=== PATIENT | female | born 1970 | race Caucasian/White ===

== ENCOUNTER 2017-12-03 09:23 | Emergency (ER) | payer BC ==
[2017-12-03 10:37] VITALS: BP 125/66
--- NOTE | 2017-12-03 10:58 | RAD ---
Indication: Lateral LEFT ankle pain post fall. Previous tarsal tunnel surgery. Comparison: No relevant prior exams available on the [facility] PACS for comparison. Technique: AP, mortise, and lateral views LEFT ankle. Report: Severe soft tissue swelling over the lateral malleolus. Fracture of the lateral malleolus terminating inferiorly at the level of the ankle mortise with up to 2 mm lateral displacement and slight widening of the ankle mortise medially. Negative for additional fracture. Talocrural joint effusion. IMPRESSION: Lino type B lateral malleolus fracture pattern with associated mild widening of the ankle mortise.
--- NOTE | 2017-12-03 11:16 | UC ---
Lower Extremity/Ankle HPI - HPI Summary HPI Summary: Pt c/o sudden onset of left ankle pain s/p slipping on ice this morning. Pt is unable to bear weight on left foot/ankle. - History of Current Complaint Chief Complaint: UCLowerExtremity Stated Complaint: LEFT ANKLE INJ Time Seen by Provider: 12/03/17 10:42 Hx Obtained From: Patient ?: No Onset/Duration: Sudden Onset, Still Present Severity Initially: Moderate Severity Currently: Mild Pain Intensity: 8 Aggravating Factor(s): Standing, Ambulation Alleviating Factor(s): Rest, Elevation, Ice Able to Bear Weight: No - Risk Factors Gout Risk Factors: Age Over 40, Obesity DVT Risk Factors: Negative Septic Arthritis Risk Factor: Negative - Allergies/Home Medications Allergies/Adverse Reactions: Allergies Allergy/AdvReac Type Severity Reaction Status Date / Time No Known Allergies Allergy Verified 12/03/17 10:37 Home Medications: Home Medications Ibuprofen 600 mg PO 12/03/17 [History] PMH/Surg Hx/FS Hx/Imm Hx Previously Healthy: Yes - Surgical History Surgical History: Yes Surgery Procedure, Year, and Place: carple tunnel X2. Tarsal tunnel on left foot - Family History Known Family History: Positive: Cardiac Disease - Social History Occupation: Unemployed Lives: With Family Alcohol Use: Occasionally Substance Use Type: None Smoking Status (MU): Never Smoked Tobacco Have You Smoked in the Last Year: No Review of Systems Constitutional: Negative Skin: Bruising - left ankle lateral malleolous Eyes: Negative ENT: Negative Respiratory: Negative Cardiovascular: Negative Gastrointestinal: Negative Genitourinary: Negative Motor: Decreased ROM - left ankle Neurovascular: Negative Musculoskeletal: Arthralgia, Decreased ROM, Edema - left ankle lateral malleolous, Myalgia Neurological: Negative Psychological: Negative Is Patient Immunocompromised?: No All Other Systems Reviewed And Are Negative: Yes Physical Exam Triage Information Reviewed: Yes Appearance: Well-Appearing Vital Signs: Initial Vital Signs Temp 99.2 F 12/03/17 10:34 Pulse 93 12/03/17 10:34 Resp 18 12/03/17 10:34 BP 125/66 12/03/17 10:34 Pulse Ox 99 12/03/17 10:34 Vital Signs Reviewed: Yes Eye Exam: Normal ENT Exam: Normal Dental Exam: Normal Neck exam: Normal Respiratory: Positive: No respiratory distress Musculoskeletal Exam: Other Musculoskeletal: Positive: Strength Limited @ - left ankle, ROM Limited @, Edema @ - left lateral malleolous Neurological Exam: Normal Psychological Exam: Normal Skin Exam: Normal Diagnostics - Laboratory Diagnostic Studies Completed/Ordered: IMPRESSION: Lino type B lateral malleolus fracture pattern with associated mild widening. of the ankle mortise. - Radiology No standard instances Radiology Interpretation Completed By: Radiologist - IMPRESSION: Lino type B lateral malleolus fracture pattern with associated mild widening of the ankle mortise. Lower Extremity Course/Dx - Course Course Of Treatment: I discussed with the pt the need to follow up with orhtopedic provider as soon as possible. - Differential Dx/Diagnosis Differential Diagnosis/HQI/PQRI: Fracture (Closed) Provider Diagnoses: left ankle fracture. IMPRESSION: Lino type B lateral malleolus fracture pattern with associated mild widening. of the ankle mortise. Discharge - Discharge Plan Condition: Stable Disposition: HOME Prescriptions: Ibuprofen TAB* [Motrin TAB* 800 MG] 800 mg PO Q8H #15 tab Patient Education Materials: Ankle Fracture (ED), R.I.C.E. Treatment (ED) Referrals: Non Staff,Doctor [Primary Care Provider] - [facility] [facility]FERR[facility] [Outside] Additional Instructions: Please follow up with your preferred Othropedic provider as soon as possible: [facility] Address: [address] [place] [address]
== END 2017-12-03 11:35 | disposition home or self-care (01) ==
LOC: UCCORT 09:23
DX: S82.62XA Displaced fracture of lateral malleolus of left fibula, initial encounter for closed fracture (principal); W00.0XXA Fall on same level due to ice and snow, initial encounter; Y93.9 Activity, unspecified; Y92.9 Unspecified place or not applicable
CPT/HCPCS: 99201; G0463

== ENCOUNTER 2018-09-17 05:42 | Day surgery (SDC) | payer BC ==
[2018-09-17] MEDS ORDERED: Buffered Lidocaine 0.9% SYRIN* 5 ML/SYR SYRINGE INTRADERM ONE (06:00)
[2018-09-17] MEDS ORDERED: Famotidine IV* 10 MG/ML 2 ML (20 mg) IV ONE (06:00)
[2018-09-17] MEDS ORDERED: Morphine PCA ADULT* 5 MG/ML 30 ML ONE ×2 (06:06→07:04)
[2018-09-17] MEDS ORDERED: Famotidine IV* 10 MG/ML 2 ML (20 mg) ONE (06:10)
[2018-09-17] MEDS ORDERED: Morphine VIAL* 10 MG/ML 1 ML VIAL ONE (06:10)
[2018-09-17] MEDS ORDERED: Clindamycin 900 MG/D5W BAG(*) 900 MG/50 ML BAG IVPB ONE (06:11)
[2018-09-17] MEDS ORDERED: Lidocaine 2% PF * 5 ML VIAL ONE (07:07)
[2018-09-17] MEDS ORDERED: Ketorolac INJ* 30 MG/ML 1 ML VIAL ONE (07:07)
[2018-09-17] MEDS ORDERED: Ondansetron INJ* 2 MG/ML VIAL ONE (07:07)
[2018-09-17] MEDS ORDERED: Propofol* 10 MG/ML 20 ML BTL IV PUSH ONE (07:07)
[2018-09-17] MEDS ORDERED: Dexamethasone IV* 4 MG/ML 1 ML (4 MG) ONE (07:07)
[2018-09-17] MEDS ORDERED: Midazolam* 1 MG/ML 5 ML VIAL (5 MG) ONE (07:08)
[2018-09-17] MEDS ORDERED: KETAMINE HCL* 50 MG/ML 10 ML VIAL ONE (07:08)
[2018-09-17] MEDS ORDERED: fentaNYL* 50 MCG/ML 2 ML VIAL (100 MCG VIAL) ONE ×3 (07:08→09:54)
[2018-09-17] MEDS ORDERED: Bupivacaine 0.5% SDV PF* 30ML VIAL ONE (07:14)
[2018-09-17] MEDS ORDERED: Cisatracurium* 2 MG/ML MDV 5 ML ONE (07:34)
[2018-09-17] MEDS ORDERED: HYDROmorphone INJ1* 1 MG/ML SYRINGE IV PRN (08:17)
[2018-09-17] MEDS ORDERED: Naloxone* 0.4 MG/ML 1 ML VIAL IV PRN (08:17)
[2018-09-17] MEDS ORDERED: Ondansetron INJ* 2 MG/ML VIAL IV PRN (08:17)
[2018-09-17] MEDS ORDERED: Glycopyrrolate IV* 0.2 MG/ML 1 ML VIAL ONE (08:28)
[2018-09-17] MEDS ORDERED: Neostigmine Methylsulfate* 1 MG/ML 10 ML VIAL (1 mg/ml) ONE (08:28)
[2018-09-17] MEDS ORDERED: HYDROmorphone INJ1* 1 MG/ML SYRINGE ONE (08:34)
[2018-09-17] MEDS ORDERED: oxyCODONE/Acetamin 5/325 MG* TAB ONE ×2 (08:53→09:54)
[2018-09-17] MEDS: fentaNYL* 50 MCG/ML 2 ML VIAL (100 MCG VIAL) IV PRN ×2 (08:55→09:17)
[2018-09-17] MEDS: oxyCODONE/Acetamin 5/325 MG* TAB PO PRN ×2 (08:55→09:55)
[2018-09-17 10:43] VITALS: BP 111/56
--- NOTE | 2018-09-18 15:06 | OP ---
DATE OF OPERATION: 09/17/18 - [facility] DATE OF : 66 SURGEON: Capo Burrows MD TOOL HONING MACHINE SET UP OPERATOR: Ashli Dumont PA-C PRE-OP DIAGNOSIS: Left distal fibula, nonunion. POST-OP DIAGNOSIS: Left distal fibula, with partial union. OPERATIVE PROCEDURE: Bone grafting and plating of left distal fibula with tibial bone graft. DESCRIPTION OF PROCEDURE: The patient was taken to the operating room where a longitudinal incision was made over the distal fibula. We thoroughly exposed the posterior and lateral aspect of the distal fibula fracture and we were able to penetrate with a #15 blade, the anterior 75% of the nonunion area. There appeared to be some bridging posteriorly. With a small power talya, we opened the non-united area to allow some bone grafting. We penetrated this with a small power talya, proximally Gerdy's tubercle 2 to 3 cm incision, we made a small keyhole in the lateral cortex harvesting some cancellous bone. This was then packed into the defect of the fibula and proximally Vicryl sutures were used to close the periosteum over the bone graft site and Monocryl for the skin. We only harvested perhaps about 2 cc of bone graft. We then also played in the fibula with a posterior lateral at one-third tubular plate, this was a six hole plate with back to front screws, one of these lag and across the nonunion site. X-rays intraoperatively shows satisfactory hardware position. We then irrigated thoroughly closing with Vicryl and satish for the skin and a compression dressing plaster splint applied. [id number]/[facility] [place] #: [id number] [facility]
== END 2018-09-17 11:28 | disposition home or self-care (01) ==
LOC: OR 05:42
PROVIDERS: ATTEND Orthopaedic Surgery
DX: S82.62XK Displaced fracture of lateral malleolus of left fibula, subsequent encounter for closed fracture with nonunion (principal); X58.XXXD Exposure to other specified factors, subsequent encounter; Y92.9 Unspecified place or not applicable
CPT/HCPCS: 81025; A9270-GY; C1713; J1100; J1170; J1885; J2250; J2270; J2405; J2704; J2710; J3010